=== PATIENT | male | born 1960 | race African-American/Black ===

== ENCOUNTER 2021-01-12 09:54 | Emergency (ER) | payer OTHER ==
[~2021-01-12] VITALS: Ht 177.8 cm; Wt 56.7 kg
--- NOTE | 2021-01-12 10:41 | NUR ---
Patient came to [facility] from facility noted roomed patient # 11 patient awake alert noted WALLACE dressing pressure applied by EMS ,patient non distress hooked in the monitor ,gown .
--- NOTE | 2021-01-12 10:43 | NUR ---
Dr. Hernandez @ bedside to removed and place new dressing to site noted non active bleeding @ this time continue to monitor .
--- NOTE | 2021-01-12 10:51 | NUR ---
Checked patient Luna noted new dressing no visible blood @ this time con tinue to monitor .
--- NOTE | 2021-01-12 10:52 | NUR ---
Keep patient clean and dry .
--- NOTE | 2021-01-12 10:54 | NUR ---
CALLED TRANSPORT ETA 1200 AM [place] [facility]
--- NOTE | 2021-01-12 12:09 | NUR ---
Repport given by Maria Elena Low RN
--- NOTE | 2021-01-12 12:10 | NUR ---
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
[2021-01-12 12:19] VITALS: BP 96/56
== END 2021-01-12 12:20 ==
LOC: ER 09:59
DX: T82.49XA Other complication of vascular dialysis catheter, initial encounter (principal); I25.2 Old myocardial infarction; I50.9 Heart failure, unspecified; I48.91 Unspecified atrial fibrillation
CPT/HCPCS: 99283; A6253

== ENCOUNTER 2024-10-19 10:28 | Inpatient (IN) | payer OTHER, MEDICAID ==
[~2024-10-19] VITALS: Ht 147.3 cm; Wt 80.7 kg
[2024-10-19] MEDS ORDERED: ONDA-97 PO (11:29)
[2024-10-19] MEDS ORDERED: ZINC220T3 PO (11:29)
[2024-10-19] MEDS ORDERED: AMIO200T5 PO (11:29)
[2024-10-19] MEDS ORDERED: ATOR40TA PO (11:29)
[2024-10-19] MEDS ORDERED: ACET-868 PO (11:29)
[2024-10-19] MEDS ORDERED: FOLI0.4T6 PO (11:29)
[2024-10-19] MEDS ORDERED: OXCA300T15 PO (11:29)
[2024-10-19] MEDS ORDERED: APIX2.5T PO (11:29)
[2024-10-19] MEDS ORDERED: SODI10PO PO (11:29)
[2024-10-19] MEDS ORDERED: BISA10SU11 RC (11:29)
[2024-10-19] MEDS ORDERED: MELA3TAB41 PO (11:29)
[2024-10-19] MEDS ORDERED: SEVE800T8 PO (11:29)
[2024-10-19] MEDS ORDERED: DOCU100T2 PO (11:29)
[2024-10-19] MEDS ORDERED: GABA300C PO (11:29)
[2024-10-19] MEDS ORDERED: ISOS30TA86 PO (11:29)
[2024-10-19] MEDS ORDERED: HYDR-4303 PO (11:29)
[2024-10-19] MEDS ORDERED: FERR325T23 PO (11:29)
[2024-10-19] MEDS ORDERED: MAGN400O6 PO (11:29)
[2024-10-19] MEDS ORDERED: TRAM50TA2 PO (11:29)
[2024-10-19] MEDS ORDERED: IPRA3AMP22 IH (11:29)
[2024-10-19] MEDS ORDERED: CARV25TA PO (11:29)
[2024-10-19] MEDS ORDERED: NORT10CA PO (11:29)
[2024-10-19] MEDS ORDERED: FURO-144 PO (11:29)
[2024-10-19] MEDS ORDERED: AMLO5TAB4 PO (11:29)
[2024-10-19] MEDS ORDERED: HYDR-4077 PO (11:29)
[2024-10-19] MEDS ORDERED: FOLI0.8T2 PO (11:29)
[2024-10-19 12:47] LABS: CALCIUM, SERUM 6.3 mg/dL (8.5-10.1); POTASSIUM 4.6 mmol/L (3.5-5.1)
[2024-10-19 12:49] LABS: INR 1.07 (0.91-1.10); PARTIAL THROMBOPLASTIN TIME 31.3 SEC (24.3-34.3); PROTHROMBIN TIME 11.3 SECS (9.2-11.1)
[2024-10-19 12:57] LABS: BASOPHILS # (AUTO) 0.1 K/uL (0.0-0.2); BASOPHILS % (AUTO) 0.8 % (0.0-2.0); EOSINOPHILS # (AUTO) 0.2 K/uL (0.0-0.7); EOSINOPHILS % (AUTO) 3.2 % (0.0-6.0); HEMATOCRIT 34 % (39-51); HEMOGLOBIN 10.7 g/dL (13.5-17.5); LYMPHOCYTES # (AUTO) 1.4 K/uL (0.8-4.8); LYMPHOCYTES % (AUTO) 23.6 % (20.0-44.0); MEAN CORPUSCULAR HEMOGLOBIN 31 PG (26.0-33.0); MEAN CORPUSCULAR HGB CONC 32 g/dl (31.0-36.0); MEAN CORPUSCULAR VOLUME 97 fL (80-96); MONOCYTES # (AUTO) 0.7 K/uL (0.1-1.30); MONOCYTES % (AUTO) 12.2 % (2.0-12.0); NEUTROPHILS # (AUTO) 3.6 K/uL (1.8-8.9); NEUTROPHILS % (AUTO) 60.2 % (43.0-81.0); PLATELET COUNT (AUTO) 181 K/uL (150-450); RED BLOOD CELL COUNT(AUTO) 3.46 MIL/uL (4.5-6.0); RED CELL DISTRIBUTION WIDTH 26.2 % (11.5-15.0); WHITE BLOOD COUNT (AUTO) 6.1 K/uL (4.3-11.0)
[2024-10-19 13:06] LABS: CREATININE 11.4 mg/dL (0.6-1.3)
[2024-10-19] MEDS ORDERED: ACETAMINOPHEN 325 MG TABLET PO PRN (17:00)
[2024-10-19] MEDS: CARVEDILOL 12.5 MG TABLET PO SCH (17:00)
[2024-10-19] MEDS ORDERED: ONDANSETRON HCL/PF 4 MG/2 ML VIAL IVP PRN (17:00)
[2024-10-19] MEDS: hydrALAZINE HCL 50 MG TABLET PO SCH (17:00)
[2024-10-19] MEDS ORDERED: MAG HYDROX/AL HYDROX/SIMETH 30 ML UDC PO PRN (17:00)
[2024-10-19] MEDS: FERROUS SULFATE (325 MG) 325 MG/TAB TABLET PO SCH (17:15)
[2024-10-19] MEDS: SEVELAMER CARBONATE 800 MG TABLET PO SCH (17:15)
[2024-10-19] MEDS: OXCARBAZEPINE 150 MG TABLET PO SCH (17:15)
[2024-10-19] MEDS: SODIUM POLYSTYRENE SULFONATE 15 G/60 ML BOTTLE PO ONE (20:06)
[2024-10-19 20:32] VITALS: BP 115/34; TEMP 97.5; O2SAT 100
[2024-10-19] MEDS: ATORVASTATIN 40 MG TABLET PO SCH (21:24)
[2024-10-19] MEDS: GABAPENTIN 300 MG CAPSULE PO SCH (21:24)
[2024-10-20 04:26] VITALS: BP 135/87; TEMP 97.5; O2SAT 96
[2024-10-20 08:00] VITALS: BP 143/124; TEMP 98.1; O2SAT 95
[2024-10-20] MEDS: VIT B CMPLX 3/FA/VIT C/BIOTIN 1 TAB TABLET PO SCH (08:16)
[2024-10-20] MEDS: FUROSEMIDE 40 MG TABLET PO SCH (08:17)
[2024-10-20] MEDS: ISOSORBIDE MONONITRATE (30MG) 30 MG TAB.SR.24H PO SCH (08:17)
[2024-10-20] MEDS: AMIODARONE HCL 200 MG TABLET PO SCH (08:17)
[2024-10-20] MEDS: ZINC SULFATE 220 MG CAPSULE PO SCH (08:18)
[2024-10-20] MEDS: FOLIC ACID 1 MG TABLET PO SCH (08:18)
[2024-10-20] MEDS: DOCUSATE SODIUM 100 MG CAPSULE PO SCH (08:22)
[2024-10-20] MEDS: AMLODIPINE BESYLATE 5 MG TABLET PO SCH (08:22)
[2024-10-20] MEDS: NORTRIPTYLINE HCL 10 MG CAPSULE PO SCH (08:24)
[2024-10-20 16:00] VITALS: BP 88/63; TEMP 97.2; O2SAT 95
[2024-10-20] MEDS ORDERED: HEPARIN SODIUM, PORCINE 1,000 UNIT/ML VIAL ONE ×2 (16:12→18:55)
[2024-10-20] MEDS ORDERED: LIDOCAINE HCL/MPF 1% 30 ML VIAL IJ ONE (16:12)
[2024-10-20] MEDS ORDERED: IOHEXOL 50 ML IV ONE (16:12)
[2024-10-20] MEDS ORDERED: ANESTHESIA TRAY IN PYXIS 1 EA TRAY MC ONE (16:19)
[2024-10-20] MEDS ORDERED: MIDAZOLAM HCL 2 MG/2ML VIAL ONE (16:37)
[2024-10-20] MEDS ORDERED: FENTANYL PF 100MCG/2ML AMPUL ONE (16:37)
[2024-10-20] MEDS ORDERED: LABETALOL 20 MG/4 ML VIAL ONE (17:47)
[2024-10-20 20:00] VITALS: BP 110/71; TEMP 97.3; O2SAT 100; O2SAT 95
[2024-10-20 20:39] LABS: EOSINOPHILS # (AUTO) 0.1 K/uL (0.0-0.7); HEMOGLOBIN 10.7 g/dL (13.5-17.5); MONOCYTES # (AUTO) 0.2 K/uL (0.1-1.30); WHITE BLOOD COUNT (AUTO) 6.4 K/uL (4.3-11.0)
[2024-10-20 20:44] LABS: BASOPHILS % (AUTO) 0.4 % (0.0-2.0); EOSINOPHILS % (AUTO) 1.7 % (0.0-6.0); HEMATOCRIT 33 % (39-51); LYMPHOCYTES # (AUTO) 0.4 K/uL (0.8-4.8); LYMPHOCYTES % (AUTO) 6.9 % (20.0-44.0); MEAN CORPUSCULAR HEMOGLOBIN 31 PG (26.0-33.0); MEAN CORPUSCULAR HGB CONC 33 g/dl (31.0-36.0); MEAN CORPUSCULAR VOLUME 97 fL (80-96); NEUTROPHILS # (AUTO) 5.7 K/uL (1.8-8.9); PLATELET COUNT (AUTO) 177 K/uL (150-450); RED BLOOD CELL COUNT(AUTO) 3.41 MIL/uL (4.5-6.0); RED CELL DISTRIBUTION WIDTH 25.6 % (11.5-15.0)
[2024-10-20 20:49] LABS: CALCIUM, SERUM 6.8 mg/dL (8.5-10.1); MAGNESIUM 2.1 mg/dL (1.8-2.4); PHOSPHORUS 4.6 mg/dL (2.5-4.9); POTASSIUM 4.9 mmol/L (3.5-5.1)
[2024-10-21] VITALS: BP 142/67; TEMP 98.1; O2SAT 94
[2024-10-21 04:00] VITALS: BP 115/61; TEMP 97.9; O2SAT 95
[2024-10-21 11:58] LABS: BASOPHILS # (AUTO) 0.1 K/uL (0.0-0.2); BASOPHILS % (AUTO) 1.3 % (0.0-2.0); EOSINOPHILS % (AUTO) 0.3 % (0.0-6.0); HEMATOCRIT 33 % (39-51); HEMOGLOBIN 10.7 g/dL (13.5-17.5); LYMPHOCYTES # (AUTO) 0.8 K/uL (0.8-4.8); MEAN CORPUSCULAR HEMOGLOBIN 32 PG (26.0-33.0); MEAN CORPUSCULAR HGB CONC 32 g/dl (31.0-36.0); MEAN CORPUSCULAR VOLUME 98 fL (80-96); MONOCYTES # (AUTO) 0.5 K/uL (0.1-1.30); NEUTROPHILS # (AUTO) 4.5 K/uL (1.8-8.9); NEUTROPHILS % (AUTO) 76.4 % (43.0-81.0); PLATELET COUNT (AUTO) 151 K/uL (150-450); RED BLOOD CELL COUNT(AUTO) 3.39 MIL/uL (4.5-6.0); RED CELL DISTRIBUTION WIDTH 26.2 % (11.5-15.0); WHITE BLOOD COUNT (AUTO) 5.9 K/uL (4.3-11.0)
[2024-10-21 12:31] LABS: ALBUMIN 2.8 g/dL (3.4-5.0); BILIRUBIN,TOTAL 0.5 mg/dL (0.2-1.0); CALCIUM, SERUM 6.8 mg/dL (8.5-10.1); MAGNESIUM 2.2 mg/dL (1.8-2.4); PHOSPHORUS 4.1 mg/dL (2.5-4.9); POTASSIUM 4.9 mmol/L (3.5-5.1); TOTAL PROTEIN, SERUM 7.7 g/dL (6.4-8.2)
[2024-10-21 12:42] LABS: CREATININE 10.1 mg/dL (0.6-1.3)
[2024-10-21] MEDS ORDERED: MAGNESIUM HYDROXIDE 30 ML UDC PO PRN (18:00)
[2024-10-21 20:00] VITALS: BP 90/35; TEMP 98.4; O2SAT 96
[2024-10-22] VITALS: BP 110/50; TEMP 97.5; O2SAT 95
[2024-10-22] MEDS ORDERED: ALBUMIN 25% 25 GM in PREMIX 1 EA IV PRN (01:00)
[2024-10-22] MEDS ORDERED: ALBUMIN 25% 100 ML IV ONE (01:04)
[2024-10-22 03:21] LABS: CALCIUM, SERUM 7.5 mg/dL (8.5-10.1); CREATININE 5.8 mg/dL (0.6-1.3); POTASSIUM 3.2 mmol/L (3.5-5.1)
[2024-10-22 04:00] VITALS: BP 138/62; TEMP 97.5; O2SAT 96
[2024-10-22 04:03] VITALS: BP 138/62; TEMP 97.5; O2SAT 96
[2024-10-22 08:00] VITALS: BP 109/42; TEMP 97.9; O2SAT 98
[2024-10-22] MEDS: POTASSIUM CHLORIDE 20 MEQ TAB.PRT.SR PO ONE (10:54)
[2024-10-22 16:00] VITALS: BP 92/55; TEMP 97.5; O2SAT 97
[2024-10-22 20:00] VITALS: BP 151/52; TEMP 97.7; O2SAT 96
[2024-10-22] MEDS: TEMAZEPAM 15 MG CAPSULE PO PRN (22:08)
[2024-10-23 07:00] VITALS: BP 147/62; TEMP 98.1; O2SAT 96
[2024-10-23 09:01] LABS: EOSINOPHILS # (AUTO) 0.2 K/uL (0.0-0.7); EOSINOPHILS % (AUTO) 4.1 % (0.0-6.0); HEMATOCRIT 37 % (39-51); HEMOGLOBIN 11.9 g/dL (13.5-17.5); LYMPHOCYTES # (AUTO) 1.2 K/uL (0.8-4.8); LYMPHOCYTES % (AUTO) 29.5 % (20.0-44.0); MEAN CORPUSCULAR HEMOGLOBIN 32 PG (26.0-33.0); MEAN CORPUSCULAR HGB CONC 32 g/dl (31.0-36.0); MEAN CORPUSCULAR VOLUME 99 fL (80-96); MONOCYTES # (AUTO) 0.7 K/uL (0.1-1.30); MONOCYTES % (AUTO) 16.5 % (2.0-12.0); NEUTROPHILS % (AUTO) 48.9 % (43.0-81.0); PLATELET COUNT (AUTO) 155 K/uL (150-450); RED BLOOD CELL COUNT(AUTO) 3.73 MIL/uL (4.5-6.0); RED CELL DISTRIBUTION WIDTH 26.2 % (11.5-15.0); WHITE BLOOD COUNT (AUTO) 4.2 K/uL (4.3-11.0)
[2024-10-23 09:15] LABS: CALCIUM, SERUM 7.4 mg/dL (8.5-10.1); MAGNESIUM 2.2 mg/dL (1.8-2.4); PHOSPHORUS 4.5 mg/dL (2.5-4.9); POTASSIUM 4.1 mmol/L (3.5-5.1)
[2024-10-23] MEDS ORDERED: HEPARIN SODIUM, PORCINE 1,000 UNIT/ML VIAL ONE (09:37)
[2024-10-23] MEDS ORDERED: LIDOCAINE HCL/MPF 1% 30 ML VIAL IJ ONE (09:37)
[2024-10-23] MEDS ORDERED: IOHEXOL 50 ML IV ONE (09:37)
[2024-10-23 09:53] LABS: CREATININE 8.8 mg/dL (0.6-1.3)
[2024-10-23 10:53] LABS: INR 1.11 (0.91-1.10); PROTHROMBIN TIME 11.7 SECS (9.2-11.1)
[2024-10-23 16:00] VITALS: BP 153/97; TEMP 97.3; O2SAT 100
[2024-10-23 17:42] LABS: EOSINOPHILS % (MANUAL) 4 % (0-4); LYMPHOCYTES % (MANUAL) 20 % (16-48); MONOCYTES % (MANUAL) 15 % (0-11.0); NEUTROPHILS % (MANUAL) 61 (42-76)
[2024-10-23 17:43] LABS: ANISOCYTOSIS 1+; PLATELET ESTIMATE ADEQUATE; TARGET CELLS 1+
[2024-10-23 20:24] VITALS: BP 96/57; TEMP 97.3; O2SAT 98
[2024-10-23] MEDS: ANCEF 1 GM/50 ML D5W IV SCH (21:29)
[2024-10-24 06:07] LABS: HEPATITIS B SURFACE AB Reactive (.)
[2024-10-24 08:00] VITALS: BP 118/68; TEMP 97.9; O2SAT 100
[2024-10-24] MEDS: APIXABAN 2.5 MG TABLET PO SCH (09:16)
[2024-10-24 13:00] VITALS: BP 135/75
== END 2024-10-24 15:22 | DRG 674 ==
LOC: ER 10:31 → TELE 12:52 → MED 10-22 09:43
PROVIDERS: ADMIT Nurse Practitioner Acute Care; ATTEND Internal Medicine
PROC: 0JH63WZ Insertion of Totally Implantable Vascular Access Device into Chest Subcutaneous Tissue and Fascia, Percutaneous Approach (ICD-10-PCS; principal; 2024-10-20)
PROC: 06HY33Z Insertion of Infusion Device into Lower Vein, Percutaneous Approach (ICD-10-PCS; 2024-10-20)
PROC: 05H633Z Insertion of Infusion Device into Left Subclavian Vein, Percutaneous Approach (ICD-10-PCS; 2024-10-20)
PROC: B547ZZA Ultrasonography of Left Subclavian Vein, Guidance (ICD-10-PCS; 2024-10-20)
PROC: 5A1D70Z Performance of Urinary Filtration, Intermittent, Less than 6 Hours Per Day (ICD-10-PCS; 2024-10-20)
PROC: 0JHP3XZ Insertion of Tunneled Vascular Access Device into Left Lower Leg Subcutaneous Tissue and Fascia, Percutaneous Approach (ICD-10-PCS; 2024-10-23)
PROC: 06HN33Z Insertion of Infusion Device into Left Femoral Vein, Percutaneous Approach (ICD-10-PCS; 2024-10-23)
PROC: B51CYZA Fluoroscopy of Left Lower Extremity Veins using Other Contrast, Guidance (ICD-10-PCS; 2024-10-23)
DX: T82.42XA Displacement of vascular dialysis catheter, initial encounter (principal); I13.2 Hypertensive heart and chronic kidney disease with heart failure and with stage 5 chronic kidney disease, or end stage renal disease; N18.6 End stage renal disease; Z99.2 Dependence on renal dialysis; Z89.511 Acquired absence of right leg below knee; Z89.512 Acquired absence of left leg below knee; I48.91 Unspecified atrial fibrillation; Y84.1 Kidney dialysis as the cause of abnormal reaction of the patient, or of later complication, without mention of misadventure at the time of the procedure; Y92.129 Unspecified place in nursing home as the place of occurrence of the external cause; I50.9 Heart failure, unspecified; E78.5 Hyperlipidemia, unspecified; I25.10 Atherosclerotic heart disease of native coronary artery without angina pectoris; I25.2 Old myocardial infarction; Z79.51 Long term (current) use of inhaled steroids; Z79.01 Long term (current) use of anticoagulants; Z79.899 Other long term (current) drug therapy; M89.8X9 Other specified disorders of bone, unspecified site; I73.9 Peripheral vascular disease, unspecified; D63.8 Anemia in other chronic diseases classified elsewhere; Z91.158 Patient's noncompliance with renal dialysis for other reason
CPT/HCPCS: 36415; 71045-TC; 74018; 80048-TC; 80053-TC; 83735-TC; 84100-TC; 85025-TC; 85730-TC; 86706; 86850-TC; 87081-TC; 87340; 90935-TC; A4216; A4223; C1757; C1769; C1894; G0378; J0690; J1100; J1644; J2250; J2405; J2704; J2765; J3010; J3490; J7030; J7050; J7060; P9047; Q9967

== ENCOUNTER 2025-01-01 13:32 | Emergency (ER) | payer MEDICARE, OTHER ==
[~2025-01-01] VITALS: Ht 167.6 cm; Wt 78.5 kg
[~2025-01-01 13:32] MED LIST: ACET-868 PO; AMIO200T5 PO; AMLO5TAB4 PO; APIX2.5T PO; ATOR40TA PO; BISA10SU11 RC; CARV25TA PO; DOCU100T2 PO; FERR325T23 PO; FOLI0.4T6 PO; FOLI0.8T2 PO; FURO-144 PO; GABA300C PO; HYDR-4077 PO; HYDR-4303 PO; IPRA3AMP22 IH; ISOS30TA86 PO; MAGN400O6 PO; MELA3TAB41 PO; NORT10CA PO; ONDA-97 PO; OXCA300T15 PO; SEVE800T8 PO; SODI10PO PO; TRAM50TA2 PO; ZINC220T3 PO
[2025-01-01 14:18] LABS: BASOPHILS % (AUTO) 0.4 % (0.0-2.0); EOSINOPHILS # (AUTO) 0.3 K/uL (0.0-0.7); HEMATOCRIT 37 % (39-51); HEMOGLOBIN 12.5 g/dL (13.5-17.5); LYMPHOCYTES # (AUTO) 1.8 K/uL (0.8-4.8); LYMPHOCYTES % (AUTO) 22.5 % (20.0-44.0); MEAN CORPUSCULAR HEMOGLOBIN 33 PG (26.0-33.0); MEAN CORPUSCULAR HGB CONC 34 g/dl (31.0-36.0); MEAN CORPUSCULAR VOLUME 99 fL (80-96); MONOCYTES # (AUTO) 1.2 K/uL (0.1-1.30); MONOCYTES % (AUTO) 14.8 % (2.0-12.0); NEUTROPHILS # (AUTO) 4.7 K/uL (1.8-8.9); NEUTROPHILS % (AUTO) 58.3 % (43.0-81.0); PLATELET COUNT (AUTO) 227 K/uL (150-450); RED BLOOD CELL COUNT(AUTO) 3.78 MIL/uL (4.5-6.0); RED CELL DISTRIBUTION WIDTH 14.8 % (11.5-15.0); WHITE BLOOD COUNT (AUTO) 8.1 K/uL (4.3-11.0)
[2025-01-01 14:55] LABS: ALBUMIN 3.6 g/dL (3.4-5.0); BILIRUBIN,TOTAL 0.5 mg/dL (0.2-1.0); CALCIUM, SERUM 8.2 mg/dL (8.5-10.1); POTASSIUM 6.1 mmol/L (3.5-5.1); TOTAL PROTEIN, SERUM 9.2 g/dL (6.4-8.2)
[2025-01-01 14:58] LABS: CREATININE 12.3 mg/dL (0.6-1.3)
[2025-01-01] MEDS: hydrALAZINE HCL IV 20 MG VIAL IV ONE (15:07)
[2025-01-01] MEDS ORDERED: Calcium Gluconate 0.465 MEQ/ML VIAL IV ONE (15:09)
[2025-01-01] MEDS ORDERED: SODIUM POLYSTYRENE SULFONATE 15 G/60 ML BOTTLE ONE (15:10)
[2025-01-01] MEDS ORDERED: DEXTROSE 50%-WATER 50 ML DISP.SYRIN ONE (15:10)
[2025-01-01] MEDS ORDERED: INSULIN REGULAR, HUMAN 100 UNIT/ML 10 ML VIAL ONE (15:10)
[2025-01-01] MEDS ORDERED: DORZ10DR13 EACHEYE (15:16)
[2025-01-01] MEDS ORDERED: LATA2.5D15 EACHEYE (15:16)
[2025-01-01] MEDS ORDERED: MAG30ORA PO (15:16)
[2025-01-01] MEDS ORDERED: ASCO500T10 PO (15:16)
[2025-01-01] MEDS: Calcium Gluconate 1GM/10ML 4.65 MEQ in IV NS 0.9% 100 ML IV ONE (15:25)
[2025-01-01] MEDS: DEXTROSE 50%-WATER 50 ML DISP.SYRIN IV ONE (15:25)
[2025-01-01] MEDS: INSULIN REGULAR, HUMAN 100 UNIT/ML 10 ML VIAL IV ONE (15:25)
[2025-01-01] MEDS: SODIUM POLYSTYRENE SULFONATE 15 G/60 ML BOTTLE PO ONE (15:28)
[2025-01-01 15:49] VITALS: O2SAT 96
[2025-01-01] MEDS: ALBUTEROL FS 2.5 MG/3 ML VIAL.NEB NEB ONE (15:49)
[2025-01-01] MEDS ORDERED: ALBUTEROL FS 2.5 MG/3 ML VIAL.NEB ONE (15:51)
[2025-01-01 16:10] VITALS: O2SAT 100
[2025-01-01 17:30] VITALS: BP 127/68; TEMP 97.8; O2SAT 96
== END 2025-01-01 23:00 | disposition home or self-care (01) ==
LOC: ER 13:45 → TELE1 15:40 → UNDOADMIN 15:40 → UNDODISIN 16:42 → ER 23:00
DX: E87.5 Hyperkalemia (principal); R47.81 Slurred speech; I13.2 Hypertensive heart and chronic kidney disease with heart failure and with stage 5 chronic kidney disease, or end stage renal disease; I25.10 Atherosclerotic heart disease of native coronary artery without angina pectoris; E11.22 Type 2 diabetes mellitus with diabetic chronic kidney disease; I50.9 Heart failure, unspecified; I48.91 Unspecified atrial fibrillation; J44.9 Chronic obstructive pulmonary disease, unspecified; Z79.899 Other long term (current) drug therapy; Z20.822 Contact with and (suspected) exposure to COVID-19; Z86.73 Personal history of transient ischemic attack (TIA), and cerebral infarction without residual deficits; Z89.511 Acquired absence of right leg below knee; Z89.512 Acquired absence of left leg below knee; Z79.4 Long term (current) use of insulin; Z79.01 Long term (current) use of anticoagulants
CPT/HCPCS: 99291; 96365; 70450; 96375; 87426; 93005; 71045; 85025; 36415; 80053; 84484; 94799; 94640; J0612; J1815; G0378; J7030

== ENCOUNTER 2025-05-19 12:28 | Inpatient (IN) | payer MEDICARE, OTHER ==
[2025-05-19] VITALS (34 sets, daily range): BP systolic 32–250; BP diastolic 13–92; TEMP 97.6; O2SAT 97–100
[~2025-05-19] VITALS: Ht 167.6 cm; Wt 64.4 kg
[~2025-05-19 12:28] MED LIST changes: +ASCO500T10 PO; +DORZ10DR13 EACHEYE; -HYDR-4303 PO; -IPRA3AMP22 IH; +LATA2.5D15 EACHEYE; +MAG30ORA PO; -MAGN400O6 PO
[2025-05-19] MEDS ORDERED: ACETAMINOPHEN 325 MG/SUPP.RECT RC ONE (12:43)
[2025-05-19] MEDS: PIPERACILLIN /TAZOBACTAM 3.375 G in IV D5W 50 ML IV ONE (12:47)
[2025-05-19] MEDS: IV NS 0.9% 1,000 ML BAG IV ONE (12:47)
[2025-05-19 12:54] LABS: PLATELET COUNT (AUTO) 205 K/uL (150-450); RED BLOOD CELL COUNT(AUTO) 3.15 MIL/uL (4.5-6.0); RED CELL DISTRIBUTION WIDTH 15.7 % (11.5-15.0); WHITE BLOOD COUNT (AUTO) 14.4 K/uL (4.3-11.0)
[2025-05-19] MEDS: VANCOMYCIN 1 GM in IV D5W 250 ML IV ONE (13:00)
[2025-05-19 13:01] LABS: CALCIUM, SERUM 8.6 mg/dL (8.5-10.1); SODIUM SERUM 137 mmol/L (136-145); UREA NITROGEN, BLOOD 39 mg/dL (7-18)
[2025-05-19 13:02] LABS: CREATININE 8.3 mg/dL (0.6-1.3)
[2025-05-19] MEDS: ACETAMINOPHEN 650 MG/SUPP.RECT RC ONE (13:02)
[2025-05-19 13:06] LABS: ASPARTATE AMINOTRANSFERASE 31 U/L (15-37); INR 1.14 (0.91-1.10); TOTAL PROTEIN, SERUM 7.8 g/dL (6.4-8.2)
[2025-05-19] MEDS ORDERED: NOREPINEPHRINE 8MG/250ML RTU 250 ML IV ONE (13:11)
[2025-05-19 13:14] LABS: LACTIC ACID 2.1 mmol/L (0.4-2.0)
[2025-05-19] MEDS: NOREPINEPHRINE 8 MG in IV NS 0.9% 242 ML IV PRN ×2 (13:32→15:40)
[2025-05-19] MEDS ORDERED: ACET-637 PO (13:38)
[2025-05-19] MEDS ORDERED: CALC667T2 PO (13:38)
[2025-05-19] MEDS ORDERED: OXCA600T8 PO (13:38)
[2025-05-19] MEDS ORDERED: AMLO-213 PO (13:38)
[2025-05-19] MEDS ORDERED: MAGN400O6 PO (13:38)
[2025-05-19] MEDS ORDERED: CARV12.52 PO (13:38)
[2025-05-19] MEDS ORDERED: HYDR-3972 PO (13:38)
[2025-05-19] MEDS ORDERED: SENN-261 PO (13:38)
[2025-05-19] MEDS: ASPIRIN 300 MG/SUPP.RECT RC STA (14:10)
[2025-05-19] MEDS ORDERED: ACETAMINOPHEN 325 MG TABLET PO PRN ×2 (14:30→16:00)
[2025-05-19] MEDS ORDERED: MAGNESIUM HYDROXIDE 30 ML UDC PO PRN ×2 (14:30→16:00)
[2025-05-19] MEDS ORDERED: Z GUARD REMEDY 4 OZ OINT TP PRN (14:30)
[2025-05-19] MEDS ORDERED: DOSING PER PHARMACY-VANCOMYCIN IV XX PRN (14:30)
[2025-05-19] MEDS: ENOXAPARIN SODIUM 60 MG/0.6 ML DISP.SYRIN SQ ONE (14:30)
[2025-05-19] MEDS ORDERED: DOSING PER PHARMACY-ZOSYN IV 1 EA EA XX PRN (14:30)
[2025-05-19] MEDS ORDERED: MAG HYDROX/AL HYDROX/SIMETH 30 ML UDC PO PRN ×2 (14:30→16:00)
[2025-05-19] MEDS ORDERED: ONDANSETRON HCL/PF 4 MG/2 ML VIAL IVP PRN (14:30)
[2025-05-19] MEDS ORDERED: ASPIRIN 300 MG/SUPP.RECT RC ONE (15:25)
[2025-05-19] MEDS ORDERED: ENOXAPARIN SODIUM 100 MG/ML DISP.SYRIN SQ ONE (15:25)
[2025-05-19] MEDS ORDERED: HYDROCODONE/APAP 5/325MG TABLET PO PRN (16:00)
[2025-05-19] MEDS ORDERED: BISACODYL SUPP (10 MG) 10 MG/SUPP.RECT SUPP.RECT RC PRN (16:00)
[2025-05-19] MEDS ORDERED: ACETAMINOPHEN ES 500 MG TABLET PO PRN (16:00)
[2025-05-19] MEDS: SEVELAMER CARBONATE 800 MG TABLET PO SCH (17:47)
[2025-05-19] MEDS: OXCARBAZEPINE 150 MG TABLET PO SCH (17:48)
[2025-05-19] MEDS: CALCIUM ACETATE 667 MG CAP/TAB PO SCH (17:48)
[2025-05-19] MEDS: FERROUS SULFATE (325 MG) 325 MG/TAB TABLET PO SCH (17:48)
[2025-05-19] MEDS: APIXABAN 2.5 MG TABLET PO SCH (17:49)
[2025-05-19] MEDS: TIMOLOL MAL/DORZOLAM HCL OPHTH 10 ML BOTTLE EACHEYE SCH (17:49)
[2025-05-19] MEDS: PIPERACILLIN /TAZOBACTAM 2.25 G in IV D5W 50 ML IV SCH (21:48)
[2025-05-19] MEDS: LATANOPROST EYE DROP 0.005% 2.5 ML BOTTLE EACHEYE SCH (22:00)
[2025-05-19] MEDS: NORTRIPTYLINE HCL 10 MG CAPSULE PO SCH (22:59)
[2025-05-19] MEDS: ATORVASTATIN 40 MG TABLET PO SCH (23:00)
[2025-05-19] MEDS: GABAPENTIN 300 MG CAPSULE PO SCH (23:00)
[2025-05-19] MEDS: SENNOSIDES 8.6 MG TABLET PO SCH (23:00)
[2025-05-19 23:55] LABS: CALCIUM, SERUM 8.8 mg/dL (8.5-10.1); SODIUM SERUM 136.0 mmol/L (136-145)
[2025-05-20] VITALS (99 sets, daily range): BP systolic 40–138; BP diastolic 25–103; TEMP 97.6–98.9; O2SAT 94–100
[2025-05-20] LABS: PHOSPHORUS 4.4 mg/dL (2.5-4.9); UREA NITROGEN, BLOOD 48.0 mg/dL (7-18)
[2025-05-20 00:04] LABS: CREATININE 9.5 mg/dL (0.6-1.3)
[2025-05-20 07:37] LABS: PLATELET COUNT (AUTO) 261 K/uL (150-450); RED BLOOD CELL COUNT(AUTO) 3.15 MIL/uL (4.5-6.0); RED CELL DISTRIBUTION WIDTH 15.6 % (11.5-15.0); WHITE BLOOD COUNT (AUTO) 12.6 K/uL (4.3-11.0)
[2025-05-20 07:47] LABS: CALCIUM, SERUM 8.5 mg/dL (8.5-10.1); PHOSPHORUS 4.2 mg/dL (2.5-4.9); SODIUM SERUM 138.0 mmol/L (136-145); UREA NITROGEN, BLOOD 47.0 mg/dL (7-18)
[2025-05-20 07:51] LABS: CREATININE 9.6 mg/dL (0.6-1.3)
[2025-05-20] MEDS: ASCORBIC ACID 500 MG TABLET PO SCH (08:14)
[2025-05-20] MEDS: DOCUSATE SODIUM 100 MG CAPSULE PO SCH (08:15)
[2025-05-20] MEDS: FOLIC ACID 1 MG TABLET PO SCH (08:15)
[2025-05-20] MEDS: AMIODARONE HCL 200 MG TABLET PO SCH (08:15)
[2025-05-20] MEDS: PANTOPRAZOLE 40 MG TABLET.DR PO SCH (08:20)
[2025-05-20] MEDS: VITAMIN B COMP W-C 1 TAB TABLET PO SCH (08:28)
[2025-05-20] MEDS: HYDROCORTISONE SOD SUCCINATE 100 MG/2 ML VIAL IV SCH (10:56)
[2025-05-20] MEDS: HEPARIN SODIUM, PORCINE 5000 UNITS/1 ML VIAL SQ ONE (13:39)
[2025-05-20] MEDS: HEPARIN INFUSION/D5W 500 ML IV PRN (13:40)
[2025-05-20 16:50] LABS: LACTIC ACID 2.4 mmol/L (0.4-2.0)
[2025-05-21] VITALS (50 sets, daily range): BP systolic 71–129; BP diastolic 19–88; TEMP 97.3–98.5; O2SAT 96–100
[2025-05-21 02:25] LABS: PLATELET COUNT (AUTO) 246 K/uL (150-450); RED BLOOD CELL COUNT(AUTO) 3.15 MIL/uL (4.5-6.0); RED CELL DISTRIBUTION WIDTH 15.3 % (11.5-15.0); WHITE BLOOD COUNT (AUTO) 13.5 K/uL (4.3-11.0)
[2025-05-21 02:39] LABS: ASPARTATE AMINOTRANSFERASE 45 U/L (15-37); CALCIUM, SERUM 8.7 mg/dL (8.5-10.1); CREATININE 5.2 mg/dL (0.6-1.3); PHOSPHORUS 2.3 mg/dL (2.5-4.9); SODIUM SERUM 141 mmol/L (136-145); TOTAL PROTEIN, SERUM 8.5 g/dL (6.4-8.2); UREA NITROGEN, BLOOD 25 mg/dL (7-18)
[2025-05-21] MEDS: VANCOMYCIN POST DIALYSIS 500MG IV PRN (03:00)
[2025-05-22] VITALS: BP 105/77; TEMP 97.9; O2SAT 100
[2025-05-22 04:00] VITALS: BP 95/69; TEMP 97.9; O2SAT 98
[2025-05-22 04:07] LABS: HEPATITIS B SURFACE AB (QUAL) Reactive (.)
[2025-05-22 08:00] VITALS: BP 110/72; TEMP 97.6; O2SAT 98
[2025-05-22 09:03] LABS: ABG BASE EXCESS -2.8 mmol/L (-2.0-3.0); ABG OXYGEN SATURATION 98.6 % (94.0-98.0); ABG PCO2 41.5 mmHg (35.0-48.0); ABG PH 7.353 (7.350-7.450); ABG PO2 145.5 mmHg (83.0-108.0); ABG TOTAL HEMOGLOBIN 10.0 G/dL (13.5-17.5); FLOW, BLOOD GAS 3.00 L/min (0.00-30.00); FRACTIONATED INSPIRED OXYGEN 33.0 %; SITE, ABG ALINE
[2025-05-22 09:56] LABS: PLATELET COUNT (AUTO) 222 K/uL (150-450); RED BLOOD CELL COUNT(AUTO) 2.96 MIL/uL (4.5-6.0); RED CELL DISTRIBUTION WIDTH 15.2 % (11.5-15.0); WHITE BLOOD COUNT (AUTO) 12.5 K/uL (4.3-11.0)
[2025-05-22 10:46] LABS: CALCIUM, SERUM 8.3 mg/dL (8.5-10.1); PHOSPHORUS 3.4 mg/dL (2.5-4.9); SODIUM SERUM 138.0 mmol/L (136-145); UREA NITROGEN, BLOOD 48.0 mg/dL (7-18)
[2025-05-22 10:49] LABS: CREATININE 9.1 mg/dL (0.6-1.3)
[2025-05-22 12:00] VITALS: BP 99/48; TEMP 97.3; O2SAT 98
[2025-05-22 16:00] VITALS: BP 99/54; TEMP 97.5; O2SAT 95
[2025-05-22] MEDS: HYDROCORTISONE SOD SUCCINATE 100 MG/2 ML VIAL IV SCH (17:13)
[2025-05-22 20:00] VITALS: BP 114/66; TEMP 97.3; O2SAT 98
[2025-05-23] VITALS: BP 125/81; TEMP 97.5; O2SAT 98
[2025-05-23 04:00] VITALS: BP 120/75; TEMP 97.8; O2SAT 98
[2025-05-23 08:00] VITALS: BP 103/55; TEMP 97.5; O2SAT 97
[2025-05-23 12:00] VITALS: BP 124/90; TEMP 97.8; O2SAT 96
[2025-05-23 16:00] VITALS: BP 117/42; TEMP 97.9; O2SAT 96
[2025-05-23 20:00] VITALS: BP 105/76; TEMP 97.7; O2SAT 97
[2025-05-24] VITALS: BP 95/65; TEMP 97.6; O2SAT 95
[2025-05-24 04:00] VITALS: BP 128/91; TEMP 97.5; O2SAT 95
[2025-05-24] MEDS: HYDROCORTISONE SOD SUCCINATE 100 MG/2 ML VIAL IV SCH (08:53)
[2025-05-24 12:00] VITALS: BP 127/87; TEMP 97.6; O2SAT 96
[2025-05-24] MEDS ORDERED: NEPRO VAN 237 ML CAN PO PRN (12:30)
[2025-05-24] MEDS ORDERED: ALBUMIN 25% 25 GM in PREMIX 1 EA IV PRN (14:00)
[2025-05-24 16:00] VITALS: BP 122/83; TEMP 98.6; O2SAT 96
[2025-05-24] MEDS ORDERED: BISACODYL (5 MG) 5 MG TABLET.DR PO PRN (19:00)
[2025-05-24 20:00] VITALS: BP 107/76; TEMP 97.9; O2SAT 99
[2025-05-25] VITALS (7 sets, daily range): BP systolic 110–140; BP diastolic 72–90; TEMP 97.1–98.6; O2SAT 95–100
[2025-05-25 09:32] LABS: PLATELET COUNT (AUTO) 234 K/uL (150-450); RED BLOOD CELL COUNT(AUTO) 3.34 MIL/uL (4.5-6.0); RED CELL DISTRIBUTION WIDTH 15.7 % (11.5-15.0); WHITE BLOOD COUNT (AUTO) 11.6 K/uL (4.3-11.0)
[2025-05-25 09:45] LABS: ASPARTATE AMINOTRANSFERASE 28.0 U/L (15-37); CALCIUM, SERUM 8.4 mg/dL (8.5-10.1); CREATININE 6.2 mg/dL (0.6-1.3); PHOSPHORUS 1.5 mg/dL (2.5-4.9); SODIUM SERUM 146.0 mmol/L (136-145); TOTAL PROTEIN, SERUM 7.5 g/dL (6.4-8.2); UREA NITROGEN, BLOOD 35.0 mg/dL (7-18)
[2025-05-25] MEDS: HEPARIN SODIUM, PORCINE 5000 UNITS/1 ML VIAL SQ SCH (15:29)
[2025-05-25] MEDS: NEUTRA PHOS 1 POWD.PACKET PO ONE (15:30)
[2025-05-26] VITALS: BP 99/87; TEMP 97.5; O2SAT 100
[2025-05-26 04:00] VITALS: BP 154/91; TEMP 97.7; O2SAT 97
[2025-05-26 08:00] VITALS: BP 150/80; TEMP 98.1; O2SAT 96
[2025-05-26 12:00] VITALS: BP 140/72; TEMP 97.5; O2SAT 96
[2025-05-26] MEDS ORDERED: VANC500P5 IV (14:37)
[2025-05-26] MEDS ORDERED: MERO500V23 IV (14:37)
[2025-05-26 16:00] VITALS: BP 134/64; TEMP 97.7; O2SAT 96
[2025-05-26 20:00] VITALS: BP 134/89; TEMP 98; O2SAT 97
[2025-05-26] MEDS: ZOLPIDEM TARTRATE 5 MG TABLET PO PRN (20:57)
[2025-05-27 04:00] VITALS: BP 96/76; TEMP 97.9; O2SAT 97
[2025-05-27 08:00] VITALS: BP 140/96; TEMP 98.9; O2SAT 97
== END 2025-05-27 10:05 | DRG 871 ==
LOC: ER 12:39 → ICU 13:59 → TELE1 05-21 15:01 → MEDSG1 05-26 14:12
PROVIDERS: ADMIT Student in an Organized Health Care Education/Training Program; ATTEND Nurse Practitioner Acute Care
PROC: 02HV33Z Insertion of Infusion Device into Superior Vena Cava, Percutaneous Approach (ICD-10-PCS; 2025-05-19)
PROC: 5A1D70Z Performance of Urinary Filtration, Intermittent, Less than 6 Hours Per Day (ICD-10-PCS; principal; 2025-05-20)
DX: A41.9 Sepsis, unspecified organism (principal); I21.4 Non-ST elevation (NSTEMI) myocardial infarction; J15.69 Pneumonia due to other Gram-negative bacteria; N18.6 End stage renal disease; R65.21 Severe sepsis with septic shock; R57.0 Cardiogenic shock; E44.0 Moderate protein-calorie malnutrition; I13.2 Hypertensive heart and chronic kidney disease with heart failure and with stage 5 chronic kidney disease, or end stage renal disease; G93.40 Encephalopathy, unspecified; J90 Pleural effusion, not elsewhere classified; I25.10 Atherosclerotic heart disease of native coronary artery without angina pectoris; I50.9 Heart failure, unspecified; E78.5 Hyperlipidemia, unspecified; I73.9 Peripheral vascular disease, unspecified; Z79.899 Other long term (current) drug therapy; Z79.01 Long term (current) use of anticoagulants; Z86.73 Personal history of transient ischemic attack (TIA), and cerebral infarction without residual deficits; Z89.512 Acquired absence of left leg below knee; Z89.511 Acquired absence of right leg below knee; Z99.2 Dependence on renal dialysis; H40.9 Unspecified glaucoma; E03.8 Other specified hypothyroidism; D63.8 Anemia in other chronic diseases classified elsewhere; I48.91 Unspecified atrial fibrillation; I25.2 Old myocardial infarction; Y95 Nosocomial condition; N25.0 Renal osteodystrophy
CPT/HCPCS: 36415; 36600; 71045-TC; 74018; 80048-TC; 80053-TC; 80076-TC; 80202-TC; 82533; 82803-TC; 83605-TC; 83735-TC; 84100-TC; 84439-TC; 84443-TC; 84484-TC; 85025-TC; 85730-TC; 86706; 87040-TC; 87081-TC; 87340; 90935-TC; 93307-TC; A4216; A4223; A6213; G0378; J1644; J1650; J1720; J2543; J3373; J7030; J7050; J7060; P9047